=== PATIENT | female | born 1955 ===

== ENCOUNTER 2018-10-18 08:40 | Outpatient (CLI) | payer SELFPAY | END 2018-10-18 08:41 | disposition home or self-care (01) | LOC: C.LAB 08:40 | DX: E78.2 Mixed hyperlipidemia (principal); Z12.11 Encounter for screening for malignant neoplasm of colon; Z13.9 Encounter for screening, unspecified ==

== ENCOUNTER 2018-10-18 09:12 | Emergency (ER) | payer SELFPAY ==
[2018-10-18 09:20] VITALS: BMI 30.7
--- NOTE | 2018-10-18 09:38 | C.PDOC ---
History Of Present Illness 62 y/o female presents to the ED for evaluation of left lower eyelid discomfort for 3 days. Patient states it feels like there is something under the eyelid. Denies any eyeball pain, vision change, discharge, or fever. Denies contact lens use. Time Seen by Provider: 10/18/18 09:24 Chief Complaint (Nursing): Eye Problem History Per: Patient History/Exam Limitations: no limitations Onset/Duration Of Symptoms: Days (x 3) Current Symptoms Are (Timing): Still Present Past Medical History Reviewed: Historical Data, Nursing Documentation, Vital Signs Vital Signs: Last Vital Signs Temp 99.1 F 10/18/18 09:17 Pulse 74 10/18/18 09:17 Resp 18 10/18/18 09:17 BP 133/82 10/18/18 09:17 Pulse Ox 98 10/18/18 09:17 - Medical History PMH: Hypercholesterolemia Surgical History: Cholecystectomy Family History: States: No Known Family Hx - Social History Hx Alcohol Use: No Hx Substance Use: No - Immunization History Hx Tetanus Toxoid Vaccination: No Hx Influenza Vaccination: Yes Hx Pneumococcal Vaccination: No Review Of Systems Except As Marked, All Systems Reviewed And Found Negative. Constitutional: Negative for: Fever, Chills Eyes: Positive for: Other (Left eyelid discomfort, questionable foreign body). Negative for: Pain (to eyeball), Vision Change ENT: Negative for: Nose Congestion, Throat Pain Respiratory: Negative for: Cough Neurological: Negative for: Weakness, Dizziness Physical Exam - Physical Exam Appears: Non-toxic, No Acute Distress Skin: Normal Color, Warm, Dry Head: Atraumatic, Normacephalic Eye(s): bilateral: PERRL, EOMI, left: Other (+ internal left lower chalazion, no purulent discharge; conjunctiva clear, no periorbital swelling or tenderness; no photophobia) Nose: Normal Oral Mucosa: Moist Chest: Symmetrical Respiratory: No Accessory Muscle Use, Other (NARD) Extremity: Bilateral: Atraumatic Pulses: Left Radial: Normal, Right Radial: Normal Neurological/Psych: Oriented x3 ED Course And Treatment O2 Sat by Pulse Oximetry: 98 (RA) Pulse Ox Interpretation: Normal Medical Decision Making Medical Decision Making: Plan: Patient will be discharged with rx for Ciprofloxacin drops and Motrin. Counseled patient regarding diagnosis and the need for follow up, referral for ophthalmology provided. Disposition Counseled Patient/Family Regarding: Diagnosis, Need For Followup, Rx Given - Disposition Referrals: Manjeet Guzmán [Staff Provider] - Disposition: HOME/ ROUTINE Disposition Time: 09:38 Condition: GOOD Prescriptions: Ciprofloxacin 0.3% [Ciloxan 0.3% Ophth SOLN] 2 drop OD Q2 #1 bottle Ibuprofen [Motrin] 400 mg PO QID #30 tab Instructions: Chalazion Forms: [email or web address] (French) Print Language: LATVIAN - Clinical Impression Clinical Impression: Chalazion left lower eyelid - Scribe Statement The provider has reviewed the documentation as recorded by the Jamar Newberry Provider Attestation: All medical record entries made by the Jamar were at my direction and personally dictated by me. I have reviewed the chart and agree that the record accurately reflects my personal performance of the history, physical exam, medical decision making, and the department course for this patient. I have also personally directed, reviewed, and agree with the discharge instructions and disposition.
[2018-10-18 09:49] VITALS: BP 115/74; PULSE 75; RESP 20; TEMP 97.5
[2018-10-18 10:20] VITALS: O2SAT 98
== END 2018-10-18 09:56 | disposition home or self-care (01) ==
LOC: C.ER 09:12
DX: H00.15 Chalazion left lower eyelid (principal)

== ENCOUNTER 2018-10-24 10:33 | Outpatient (CLI) | payer SELFPAY | END 2018-10-24 10:34 | disposition home or self-care (01) | LOC: C.LAB 10:33 ==